=== PATIENT | female | born 1940 | race Hispanic/Latino ===

== ENCOUNTER 2021-03-07 18:29 | Emergency (ER) | payer BC ==
[~2021-03-07] VITALS: Ht 160 cm; Wt 99.8 kg
[2021-03-07] MEDS ORDERED: ULTRAM 50MG50 MG PO (19:45)
[2021-03-07] MEDS ORDERED: IBUPROFEN IB200 MG PO (19:45)
[2021-03-07] MEDS ORDERED: ACETAMINOPHEN500 MG PO (19:45)
[2021-03-07] MEDS ORDERED: IBUPROFEN 600 MG TAB ONE (19:50)
[2021-03-07] MEDS ORDERED: ONDANSETRON HCL 4 MG ORAL DISINTEGRATING TAB ONE (19:50)
[2021-03-07] MEDS ORDERED: ACETAMINOPHEN 325 MG TAB ONE (19:50)
[2021-03-07] MEDS: ONDANSETRON HCL 4 MG ORAL DISINTEGRATING TAB PO ONE (19:55)
[2021-03-07] MEDS: ACETAMINOPHEN 325 MG TAB PO ONE (19:55)
[2021-03-07] MEDS: IBUPROFEN 200 MG TAB PO ONE (19:55)
== END 2021-03-07 20:18 | disposition home or self-care (01) ==
LOC: FSED 18:35
DX: S93.401A Sprain of unspecified ligament of right ankle, initial encounter (principal); X50.1XXA Overexertion from prolonged static or awkward postures, initial encounter; Y93.01 Activity, walking, marching and hiking; E11.9 Type 2 diabetes mellitus without complications; I10 Essential (primary) hypertension; E78.5 Hyperlipidemia, unspecified; E03.9 Hypothyroidism, unspecified
CPT/HCPCS: 73610; 99283; Q0162

== ENCOUNTER → 2022-01-24 | Outpatient (CLI) | payer BC ==
[~2022-01-24] MED LIST: ACETAMINOPHEN500 MG PO; IBUPROFEN IB200 MG PO; ULTRAM 50MG50 MG PO
== END ==
LOC: US 13:20
PROVIDERS: ATTEND Internal Medicine Nephrology
DX: N18.4 Chronic kidney disease, stage 4 (severe) (principal)
CPT/HCPCS: 76770; 76857